=== PATIENT | male | born 1955 | race African-American/Black ===

== ENCOUNTER 2024-12-02 10:54 | Outpatient (CLI) | payer MEDICARE, BC | END 2024-12-02 10:55 | disposition home or self-care (01) | LOC: CSHCT 10:54 | PROVIDERS: ATTEND Student in an Organized Health Care Education/Training Program | DX: T81.49XA Infection following a procedure, other surgical site, initial encounter (principal); S21.101A Unspecified open wound of right front wall of thorax without penetration into thoracic cavity, initial encounter | CPT/HCPCS: 71250 ==